=== PATIENT | male | born 1950 | race Caucasian/White ===

== ENCOUNTER 2020-11-08 08:50 | Emergency (ER) | payer MEDICARE, OTHER ==
[~2020-11-08] VITALS: Ht 185.4 cm; Wt 81.8 kg
--- NOTE | 2020-11-08 09:36 | NUR ---
PT AMBULATORY TO ROOM 29 W/ C/O URINARY RETENTION, BLADDER DISTENTION, AND PAIN. PT STATES LAST TIME HE COULD URINATE WAS AT 0300 TODAY. PT STATES IT HAS BEEN DRIBBLES SINCE AND DISCOMFORT HAS GOTTEN VERY SIGNIFICANT. PT STATES HX BPH CURRENTLY NOT ON MEDICATIONS FOR IT. PT SEEN BY ED MD DIALLO. PT HAD BLADDER SCANNER SHOW >826 ML POST VOID. KUHN INSERTED. PT ELAINE WELL. PT STATES PAIN RESOLVING. ABD NOTED TO DECREASE IN SIZE. PT NOW RESTING ON GURNEY. NADN. VSS.
[2020-11-08 09:45] LABS: BASOPHILS % (AUTO) 0 % (0-1); EOSINOPHILS % (AUTO) 0 % (1-7); LYMPHOCYTES % (AUTO) 9 % (22-44); MEAN CORPUSCULAR HEMOGLOBIN 30.3 pg (27.5-34.5); MEAN PLATELET VOLUME 7.4 fL (7.4-10.4); MONOCYTES % (AUTO) 3 % (2-9); NEUTROPHILS % (AUTO) 87 % (42-75); PLATELET COUNT 152 x10^3/uL (130-400); RED BLOOD COUNT 5.65 x10^6/uL (4.38-5.82); RED CELL DISTRIBUTION WIDTH 13.4 % (9.4-14.8)
[2020-11-08 09:52] LABS: MICROSCOPIC AUTO
[2020-11-08 09:54] LABS: ALBUMIN 3.2 g/dL (3.4-5.0); ANION GAP 8 mmol/L (5-15); CALCIUM 9.2 mg/dL (8.5-10.1); CHLORIDE 112 mmol/L (98-107); CREATININE 1.01 mg/dL (0.7-1.3)
--- NOTE | 2020-11-08 10:01 | NUR ---
PT CHART REVIEWED AND PLACED FOR RECHECK.
--- NOTE | 2020-11-08 10:50 | NUR ---
KUHN CARE PERFORMED AND PT EDUCATED ON HOW TO TAKE CARE OF IT AT HOME AND KEEPING A CLOSED SYSTEM TO PREVENT INFECTION. PT WAS PROVIDED W/ DEMONSTRATION AND PERFORMED RETURN DEMONSTRATION. PT PROVIDED W/ KUHN SUPPLIES. ALL QUESTIONS ANSWERED.
[2020-11-08 11:00] VITALS: BP 125/73
== END 2020-11-08 11:02 | disposition home or self-care (01) ==
LOC: ED 10:08
DX: N40.1 Benign prostatic hyperplasia with lower urinary tract symptoms (principal); R33.8 Other retention of urine
CPT/HCPCS: 36415; 51702; 80048; 81001; 82040; 85025; 99284; 99285